=== PATIENT | female | born 1960 | race Caucasian/White ===

== ENCOUNTER 2016-07-04 07:07 | Day surgery (SDC) | payer OTHER ==
[2016-07-04] MEDS ORDERED: FLUMAZENIL 0.5 MG/5 ML MDV IVP ONE (08:31)
[2016-07-04] MEDS ORDERED: fentaNYL 100 MCG/2 ML INJ ONE (08:31)
[2016-07-04] MEDS ORDERED: NALOXONE HCL 0.4 MG/ML INJ ONE (08:31)
[2016-07-04] MEDS ORDERED: MIDAZOLAM 2 MG/2 ML VIAL ONE (08:31)
== END 2016-07-04 13:30 | disposition home or self-care (01) ==
LOC: FIMAGING 07:07
PROVIDERS: ATTEND Internal Medicine Hematology & Oncology
PROC: 0FB03ZX Excision of Liver, Percutaneous Approach, Diagnostic (ICD-10-PCS; principal; 2016-07-04 09:52)
DX: C78.7 Secondary malignant neoplasm of liver and intrahepatic bile duct (principal); C56.9 Malignant neoplasm of unspecified ovary
CPT/HCPCS: J2250; J2310; J3010

== ENCOUNTER → 2017-08-11 | Outpatient (CLI) | payer OTHER | LOC: FIMAGING 15:37 | PROVIDERS: ATTEND Internal Medicine Hematology & Oncology | DX: K83.1 Obstruction of bile duct (principal); C78.7 Secondary malignant neoplasm of liver and intrahepatic bile duct; C56.9 Malignant neoplasm of unspecified ovary ==

== ENCOUNTER 2017-11-20 07:12 | Day surgery (SDC) | payer OTHER ==
[~2017-11-20 07:12] MED LIST: ALTEPLASE 2 MG VIAL IVP PRN; FLUMAZENIL 0.5 MG/5 ML MDV IVP PRN; GLUCAGON HCL 1 MG VIAL IVP PRN; HEPARIN 10,000 UNIT/10 ML MDV (1,000 UNIT/ML) IVP PRN; MEPERIDINE 25 MG/ML SYR IVP PRN; MIDAZOLAM 2 MG/2 ML VIAL IVP PRN; NALOXONE HCL 0.4 MG/ML INJ IVP PRN; PROTAMINE SULFATE 50 MG/5 ML VIAL IVP PRN; ceFAZolin 2 GM/DEXTROSE 100 ML IV ONE; fentaNYL 100 MCG/2 ML INJ IVP PRN
[2017-11-20] MEDS ORDERED: NS 1,000 ML IV SCH (07:15)
[2017-11-20 08:18] LABS: INR 1.19 (0.83-1.16); PROTIME(PATIENT) 15.3 SEC (12.0-15.0)
[2017-11-20] MEDS ORDERED: fentaNYL 100 MCG/2 ML INJ ONE (08:39)
[2017-11-20] MEDS ORDERED: MIDAZOLAM 2 MG/2 ML VIAL ONE (08:39)
[2017-11-20] MEDS ORDERED: NALOXONE HCL 0.4 MG/ML INJ ONE (08:39)
[2017-11-20] MEDS ORDERED: FLUMAZENIL 0.5 MG/5 ML MDV IVP ONE (08:39)
[2017-11-20] MEDS ORDERED: LIDOCAINE 1% 300 MG/30 ML SDV ONE (09:11)
[2017-11-20] MEDS ORDERED: ONDANSETRON 4 MG/2 ML VIAL IVP PRN (09:47)
[2017-11-20] MEDS ORDERED: ACETAMINOPHEN 325 MG TAB PO PRN (09:47)
--- NOTE | 2017-11-20 09:49 | PDPROPOC ---
Sedation Plan of Care Sedation Plan of Care: vital signs stable, mental status noted, patient educated of risks, benefits, alternatives, patient can tolerate sedation ASA Classification: ASA 2 Planned drugs: fentanyl, midazolam Mallampati Score: Class 2 Mallampati Reference Image: Patient passed 3-3-2 rule?: Yes
--- NOTE | 2017-11-20 09:50 | PDRADPRE ---
Radiology History & Physical Indication for procedure: cancer (Ovarian cancer, malignant ascites - PleurX catheter placement) Home medications: Cymbalta Unk Dose 60 mg PO DAILY 01/24/15 [Last Taken 11/19/17 10:00] Bupropion HBr [Aplenzin] 11/20/17 [Last Taken 11/19/17 10:00] Oxycodone HCl 5 mg PRN 11/20/17 [Last Taken 11/19/17 23:59] Zofran Odt 4 mg SL PRN 11/20/17 [Last Taken 11/19/17 23:59] traZODONE 50MG (*) 50 mg PO PRN 11/20/17 [Last Taken 11/19/17 23:59] Allergies/Adverse Reactions: iodine Allergy (Severe, Verified 11/20/17 08:23) Anaphylaxis shellfish derived Allergy (Intermediate, Verified 11/20/17 08:23) Vomiting Mental status: A&Ox3 Heart exam: regular rate and rhythm Lungs exam: clear to auscultation Mallampati Score: Class 2
--- NOTE | 2017-11-20 09:52 | PDRADPN ---
Radiology Procedure Note Date of Procedure: 11/20/17 Radiologist: Angel Hadley Anesthesia: IV Sedation Pre-op Diagnosis: ovarian cancer Post-op Diagnosis: ovarian cancer Indication: malignant ascites Procedure: PleurX catheter placement, peritoneum Finding(s): Large amount hypoechoic fluid on ultrasound right sided abdomen accessed in RLQ. Peritoneal pleurX catheter placed into large volume complex, malignant ascites. Inf/Abcess present in the surg proc area at time of surgery?: No Drains: Other (Peritoneal PleurX)
[2017-11-20 11:15] VITALS: BP 144/92
== END 2017-11-20 11:40 | disposition home or self-care (01) ==
LOC: FIMAGING 07:12
PROVIDERS: ATTEND Internal Medicine Hematology & Oncology
PROC: 0W9G30Z Drainage of Peritoneal Cavity with Drainage Device, Percutaneous Approach (ICD-10-PCS; principal; 2017-11-20 10:00)
DX: R18.0 Malignant ascites (principal); C56.2 Malignant neoplasm of left ovary
CPT/HCPCS: C2617; J0690; J2250; J2310; J3010

== ENCOUNTER 2017-12-21 08:26 | Emergency (ER) | payer OTHER ==
--- NOTE | 2017-12-21 09:09 | EDPHY ---
H & P Stated Complaint: Sent in for IR to replace drainage tube abd Time Seen by Provider: 12/21/17 08:53 HPI/ROS: Chief Complaint: Abdominal pain, ascites HPI: 49-year-old woman with history of metastatic ovarian cancer, on hospice care. Patient has a history recurrent ascites. She had a Angelo peritoneal drain placed a month ago for palliation. The drain fell out about 10 days ago. It had scarred over but began waking today. She is having increasing abdominal distention and ascites. She is also having increasing pain. She was sent in for evaluation for possible replacement of her peritoneal drain. ROS: 10 systems were reviewed and were negative except those elements noted in the HPI. PMH: Metastatic ovarian cancer Social History: No smoking, no alcohol, no recreational drug use Family History: non-contributory Physical Exam: Gen: Awake, Alert, No Distress HEENT: Nose: no rhinorrhea Eyes: PERRLA, EOMI Mouth: Moist mucosa Neck: Supple, no JVD Chest: nontender, lungs clear to auscultation Heart: S1, S2 normal, no murmur Abd: Firm, distended, mild diffuse guarding, diffusely tender Back: no CVA tenderness, no midline tenderness Ext: no edema, non-tender Skin: no rash Neuro: CN II-XII intact, Sensation grossly intact, Strength 5/5 in bilateral upper and lower extremities - Personal History Current Tetanus Diphtheria and Acellular Pertussis (TDAP): Yes Tetanus Vaccine Date: <10YRS - Medical/Surgical History Hx Asthma: No Hx Chronic Respiratory Disease: No Hx Diabetes: No Hx Cardiac Disease: No Hx Renal Disease: No Hx Cirrhosis: No Hx Alcoholism: No Hx HIV/AIDS: No Hx Splenectomy or Spleen Trauma: No Other PMH: PMH: RECURRENT OVARIAN CA,HTN - Social History Smoking Status: Never smoked Constitutional: Initial Vital Signs Heart Rate 111 H 12/21/17 08:32 Respiratory Rate 18 12/21/17 08:32 Blood Pressure 124/87 H 12/21/17 08:32 O2 Sat (%) 94 12/21/17 08:32 O2 Delivery Mode Room Air Allergies/Adverse Reactions: iodine Allergy (Severe, Verified 12/21/17 08:36) Anaphylaxis shellfish derived Allergy (Intermediate, Verified 12/21/17 08:36) Vomiting Home Medications: Medication Instructions Recorded Oxycodone HCl 5 mg PRN 11/20/17 traZODONE 50MG (*) 50 mg PO PRN 11/20/17 Cephalexin [Keflex (*)] 500 mg PO Q6H #40 cap 12/21/17 Dexamethasone [Decadron 0.5 mg (*)] 0.5 mg PO 12/21/17 Haloperidol [Haldol 5 MG (*)] 5 mg PO 12/21/17 LORazepam [Ativan (*)] 1 mg PO 12/21/17 traMADol [Ultram 50 mg (*)] 12/21/17 Medical Decision Making - Diagnostics Imaging Results: Imaging Impressions Abdomen Ultrasound 12/21/17 09:07 Impression: Loculated ascites in the left lower quadrant. ED Course/Re-evaluation: Spoke with Dr Sandoval,interventional radiologist. He is requesting ultrasound to evaluate the extent of her ascites. Blood work and coags. Ultrasound results noted. Fluid collections in the left side abdomen. Right- sided is not show any evidence of collection in the fluid is probably draining through the incision site. Dr. Sandoval has consulted the patient in the emergency department. Plan will be to Dermabond the incision site closed at this time. If the fluid should recollect they will discuss further drainage. The patient is comfortable with this plan. Will discharge with outpatient follow-up with interventional Radiology as needed. Dr. Sandoval has closed the drain site with sutures and Dermabond. He did note some purulent discharge. He did not appreciate an abscess. He is recommending starting the patient on oral antibiotics for a possible infection. He does not have any further recommendations at this time. - Data Points Laboratory Results: Laboratory Results 12/21/17 09:06 12/21/17 09:06 12/21/17 12/21/17 12/21/17 09:06 09:06 09:06 WBC 14.04 10^3/uL H 10^3/uL (3.80-9.50) RBC 4.33 10^6/uL 10^6/uL (4.18-5.33) Hgb 11.5 g/dL L g/dL (12.6-16.3) Hct 35.5 % L % (38.0-47.0) MCV 82.0 fL fL (81.5-99.8) MCH 26.6 pg L pg (27.9-34.1) MCHC 32.4 g/dL g/dL (32.4-36.7) RDW 19.9 % H % (11.5-15.2) Plt Count 219 10^3/uL 10^3/uL (150-400) MPV 8.3 fL L fL (8.7-11.7) Neut % (Auto) 84.4 % H % (39.3-74.2) Lymph % (Auto) 8.5 % L % (15.0-45.0) [place] % (Auto) 6.3 % % (4.5-13.0) Eos % (Auto) 0.1 % L % (0.6-7.6) Baso % (Auto) 0.1 % L % (0.3-1.7) Nucleat RBC Rel Count 0.0 % % (0.0-0.2) Absolute Neuts (auto) 11.87 10^3/uL H 10^3/uL (1.70-6.50) Absolute Lymphs (auto) 1.19 10^3/uL 10^3/uL (1.00-3.00) Absolute Monos (auto) 0.88 10^3/uL H 10^3/uL (0.30-0.80) Absolute Eos (auto) 0.01 10^3/uL L 10^3/uL (0.03-0.40) Absolute Basos (auto) 0.01 10^3/uL L 10^3/uL (0.02-0.10) Absolute Nucleated RBC 0.00 10^3/uL 10^3/uL (0-0.01) Immature Gran % 0.6 % % (0.0-1.1) Immature Gran # 0.08 10^3/uL 10^3/uL (0.00-0.10) PT 13.6 SEC SEC (12.0-15.0) INR 1.02 (0.83-1.16) APTT 27.1 SEC SEC (23.0-38.0) Sodium 133 mEq/L L mEq/L (135-145) Potassium 3.8 mEq/L mEq/L (3.3-5.0) Chloride 99 mEq/L mEq/L (97-110) Carbon Dioxide 26 mEq/l mEq/l (22-31) Anion Gap 8 mEq/L mEq/L (8-16) BUN 37 mg/dL H mg/dL (7-23) Creatinine 0.9 mg/dL mg/dL (0.6-1.0) Estimated GFR > 60 Glucose 101 mg/dL H mg/dL (70-100) Calcium 9.3 mg/dL mg/dL (8.5-10.4) Medications Given: Discontinued Medications Fentanyl (Sublimaze) 100 mcg IVP EDNOW ONE Stop: 12/21/17 10:12 Last Admin: 12/21/17 10:13 Dose: 100 mcg Departure - Departure Disposition: Home, Routine, Self-Care Clinical Impression: Abdominal pain, Ascites, Cellulitis Condition: Good Instructions: Ascites (ED), Abdominal Pain (ED), Cellulitis (ED) Additional Instructions: Follow up with your hospice doctor in 1-2 days for further evaluation. Return to the emergency department for uncontrolled abdominal pain, increasing abdominal distension, fevers, uncontrolled nausea vomiting, or any other concerns. Referrals: LISHA WOODY [Primary Care Provider] - As per Instructions Prescriptions: Cephalexin [Keflex (*)] 500 mg PO Q6H #40 cap
[2017-12-21 09:48] LABS: PLATELET COUNT 219 10^3/uL (150-400)
[2017-12-21 09:55] LABS: INR 1.02 (0.83-1.16); PROTIME(PATIENT) 13.6 SEC (12.0-15.0)
[2017-12-21] MEDS ORDERED: fentaNYL 100 MCG/2 ML INJ IVP ONE (10:11)
[2017-12-21 10:23] VITALS: BP 121/87
== END 2017-12-21 11:17 | disposition home or self-care (01) ==
DX: R18.0 Malignant ascites (principal); R10.9 Unspecified abdominal pain; L03.311 Cellulitis of abdominal wall; C56.9 Malignant neoplasm of unspecified ovary
CPT/HCPCS: 96374; J3010